=== PATIENT | female | born 1990 | race African-American/Black ===

== ENCOUNTER 2017-02-23 17:12 | Emergency (ER) | payer SELFPAY ==
[~2017-02-23] VITALS: Ht 170.2 cm; Wt 102.0 kg
[~2017-02-23 17:12] MED LIST: Z.0.NO CURRENT MEDS
[2017-02-23 17:20] VITALS: BP 134/71; PULSE 80; RESP 16; TEMP 98.6; O2SAT 100
--- NOTE | 2017-02-23 17:40 | PD ---
HPI Chief Complaint: Abdominal Pain Time Seen by Provider: 17:28 Travel History International Travel<30 days: No Contact w/Intl Traveler<30days: No Traveled to known affect area: No History of Present Illness HPI 26-year-old female complains of low abdominal pain. Patient states the pain started yesterday. Patient states that the pain cramping pain and sharp pain localized to lower abdomen. Patient denies any pain radiation. Patient denies any fever chills. Patient denies any dysuria or frequency. Patient denies any vaginal discharge or bleeding. Patient states that she is 1 para 0 AB 0. Last menstruation period about 2 months ago. Patient states that she thinks she is . 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 PFSH Past Medical History Anemia: Yes : 0 Para: 0 Miscarriage: 0 Social History Alcohol Use: Yes (OCCAS) Tobacco Use: No Substance Use: No Allergies-Medications (Allergen,Severity, Reaction): Coded Allergies: No Known Allergies (Verified Adverse Reaction, Unknown, 02/23/17) Reported Meds & Prescriptions Reported Meds & Active Scripts Active No Active Prescriptions or Reported Medications Review of Systems General / Constitutional: No: Fever Eyes: No: Visual changes HENT: No: Headaches Cardiovascular: No: Chest Pain or Discomfort Respiratory: No: Shortness of Breath Gastrointestinal: Positive: Abdominal Pain Genitourinary: No: Dysuria Musculoskeletal: No: Pain Skin: No Rash Neurologic: No: Weakness Psychiatric: No: Depression Endocrine: No: Polydipsia Hematologic/Lymphatic: No: Easy Bruising Physical Exam Narrative GENERAL: Well-nourished, well-developed patient. SKIN: Focused skin assessment warm/dry. HEAD: Normocephalic. EYES: No scleral icterus. No injection or drainage. NECK: Supple, trachea midline. No JVD or lymphadenopathy. CARDIOVASCULAR: Regular rate and rhythm without murmurs, gallops, or rubs. RESPIRATORY: Breath sounds equal bilaterally. No accessory muscle use. GASTROINTESTINAL: Abdomen soft, nondistended. Patient has mild tenderness on palpation lower abdomen. No rebound tenderness. No mass. MUSCULOSKELETAL: No cyanosis, or edema. BACK: Nontender without obvious deformity. No CVA tenderness. RECREATION CLERK exam: Patient has a small amount of thick whitish discharge in the vaginal vault. No blood in the vaginal vault. The cervix is long thick and closed. Uterus enlarged with mild tenderness on palpation. No adnexal mass or tenderness. Data Data Last Documented VS Vital Signs Date Time Temp Pulse Resp B/P (MAP) Pulse Ox O2 Delivery O2 Flow Rate FiO2 02/23/17 19:44 75 18 137/77 (97) 97 02/23/17 17:20 98.6 Orders Orders Urinalysis - C+S If Indicated (02/23/17 17:22) Ed Urine Pregnancytest Poc (02/23/17 17:22) Beta Hcg (Quant/Titer) (02/23/17 17:32) Complete Blood Count With Diff (02/23/17 17:32) Basic Metabolic Panel (Bmp) (02/23/17 17:32) Complete Rh (02/23/17 17:32) Iv Access Insert/Monitor (02/23/17 17:32) Us Pelvis (Ques Pr/Ect)W Trans (02/23/17 ) Gc And Chlamydia Pcr (02/23/17 18:18) Wet Prep Profile (02/23/17 18:18) Ed Discharge Order (02/23/17 19:47) Labs Laboratory Tests Test 02/23/17 17:25 02/23/17 17:30 02/23/17 18:10 Clue Cells (Wet Prep) NONE SEEN Vaginal Trichomonas (Wet Prep) NONE SEEN Vaginal Yeast (Wet Prep) NONE SEEN Urine Color YELLOW Urine Turbidity CLEAR Urine pH 7.0 Urine Specific [place] 1.025 Urine Protein NEG mg/dL Urine Glucose (UA) NEG mg/dL Urine Ketones NEG mg/dL Urine Occult Blood NEG Urine Nitrite NEG Urine Bilirubin NEG Urine Leukocyte Esterase NEG Urine RBC 0-2 /hpf Urine WBC 3-5 /hpf Urine Squamous Epithelial Cells 0-5 /hpf Urine Bacteria RARE /hpf Microscopic Urinalysis Comment CULT NOT INDICATED White Blood Count 8.0 TH/MM3 Red Blood Count 4.51 MIL/MM3 Hemoglobin 9.9 GM/DL Hematocrit 32.3 % Mean Corpuscular Volume 71.7 FL Mean Corpuscular Hemoglobin 21.9 PG Mean Corpuscular Hemoglobin Concent 30.5 % Red Cell Distribution Width 18.9 % Platelet Count 282 TH/MM3 Mean Platelet Volume 8.5 FL Neutrophils (%) (Auto) 52.3 % Lymphocytes (%) (Auto) 33.9 % Monocytes (%) (Auto) 12.0 % Eosinophils (%) (Auto) 1.4 % Basophils (%) (Auto) 0.4 % Neutrophils # (Auto) 4.2 TH/MM3 Lymphocytes # (Auto) 2.7 TH/MM3 Monocytes # (Auto) 1.0 TH/MM3 Eosinophils # (Auto) 0.1 TH/MM3 Basophils # (Auto) 0.0 TH/MM3 CBC Comment AUTO DIFF Differential Comment AUTO DIFF CONFIRMED Platelet Estimate NORMAL Platelet Morphology Comment NORMAL Ovalocytes 1+ Blood Urea Nitrogen 11 MG/DL Creatinine 0.59 MG/DL Random Glucose 86 MG/DL Calcium Level 8.0 MG/DL Sodium Level 138 MEQ/L Potassium Level 3.5 MEQ/L Chloride Level 105 MEQ/L Carbon Dioxide Level 26.0 MEQ/L Anion Gap 7 MEQ/L Estimat Glomerular Filtration Rate 147 ML/MIN Human Chorionic Gonadotropin, Quant 1652 MIU/ML [facility] Medical Decision Making Medical Screen Exam Complete: Yes Emergency Medical Condition: Yes Interpretation(s) 1931 PM. CBC hemoglobin 9.9 hematocrit 32.3. MCV 71.7. Beta-hCG 1652. UA is negative. Wet prep negative. Differential Diagnosis Differential diagnosis including pelvic pain during , threatened AB, incomplete AB, completed AB, ectopic . Narrative Course 18-year-old female with low abdominal pain. Patient states that she is 2 months by date. Diagnosis Primary Impression: Pelvic pain during Patient Instructions: General Instructions Additional Instructions: Take vitamins as directed. Follow-up with local OB physician. Return in 2 days for repeat hCG titer and reexamination. Return immediately increasing abdominal pain, pelvic pain, vaginal bleeding. Med/Other Pt SpecificInfo: No Meds Exist/No RX given Scripts No Active Prescriptions or Reported Meds Disposition: 01 DISCHARGE HOME Condition: Stable Jordan Connelly MD Feb 23, 2017 17:40
[2017-02-23 18:25] LABS: AUTOMATED NEUTROPHIL # 4.2 TH/MM3 (1.8-7.7); BASOPHIL % 0.4 % (0.0-2.0); EOSINOPHIL # 0.1 TH/MM3 (0-0.4); EOSINOPHIL % 1.4 % (0.0-4.0); HEMATOCRIT 32.3 % (35.0-46.0); LYMPH % 33.9 % (9.0-44.0); LYMPHOCYTE # 2.7 TH/MM3 (1.0-4.8); MEAN CELL VOLUME 71.7 FL (80.0-100.0); MEAN CORPUSCULAR HEMOGLOBIN 21.9 PG (27.0-34.0); MEAN CORPUSCULAR HGB CONC 30.5 % (32.0-36.0); NEUT % 52.3 % (16.0-70.0); PLATELET COUNT 282 TH/MM3 (150-450); RED BLOOD COUNT 4.51 MIL/MM3 (4.00-5.30); RED CELL DISTRIBUTION WIDTH 18.9 % (11.6-17.2)
[2017-02-23 18:25] LABS: BLOOD, URINE NEG (NEG); GLUCOSE,URINE NEG (NEG); KETONE, URINE NEG (NEG); NITRITE,URINE NEG (NEG)
[2017-02-23 18:30] LABS: URINE COLOR YELLOW (YELLW/STRAW)
[2017-02-23 18:31] LABS: BACTERIA, URINE RARE /hpf; COMMENT (UR) CULT NOT INDICATED; CULTURE IF INDICATED CULT NOT INDICATED; RBC, URINE 0-2 /hpf (0-3); SQUAMOUS EPITHELIAL CELL URINE 0-5 /hpf (0-5)
[2017-02-23 18:37] LABS: HEMO FLAGS AUTO DIFF
[2017-02-23 18:47] LABS: POTASSIUM 3.5 MEQ/L (3.5-5.1)
[2017-02-23 19:00] VITALS: BP 134/67; PULSE 85; RESP 16; O2SAT 97
[2017-02-23 19:00] LABS: OVALOCYTES 1+ (NORMAL); PLATELET ESTIMATE SMEAR NORMAL (NORMAL); PLATELET MORPHOLOGY NORMAL (NORMAL); SCAN/DIFF AUTO DIFF CONFIRMED
[2017-02-23 19:44] VITALS: BP 137/77
--- NOTE | 2017-02-23 19:48 | RADRPT ---
EXAM DATE/TIME: 02/23/2017 17:51 [facility] COMPARISON: No previous studies available for comparison. INDICATIONS : Pelvic pain. LAB(S): Beta-hC MEDICAL HISTORY : . Anemia. SURGICAL HISTORY : None. ENCOUNTER: Initial ACUITY: 1 day PAIN SCORE: 8/10 LOCATION: Bilateral pelvis MEASUREMENTS: UTERUS: 9.6 x 8.0 x 5.8 cm ENDOMETRIAL STRIPE: 20 mm RIGHT OVARY: 3.2 x 2.8 x 2.5 cm LEFT OVARY: 4.0 x 3.4 x 3.1 cm FREE FLUID: No CROWN RUMP LENGTH: not seen = WKS DAYS FHR: not seen BPM FINDINGS: UTERUS: The myometrium is heterogeneous. Multiple hypoechoic masses are seen consistent with intramural and s ubserosal fibroids. The largest fibroid is subserosal exophytic from the posterior body. It measures 5.5 cm. Endometrial stripe is thickened measuring 2 cm. No fluid within the endometrial canal. No dis crete gestational sac. RIGHT OVARY: Ovary contains no mass or significant cystic lesion. LEFT OVARY: A 2 cm mildly complex cyst is seen involving the left ovary. No hyperemia. MISCELLANEOUS: No free fluid. CONCLUSION: 1. No gestation is currently seen. This may relate to the early stage of gestation which is occult by ultrasound at this point. 2. Multiple uterine fibroids. 3. Mildly complex cyst involving the left ovary likely relating to a corpus luteal cyst. Callum Brown Jr., MD on February 23, 2017 at 19:43 Board Certified Radiologist. This report was verified electronically.
[2017-02-23 21:34] LABS: CHLAMYDIA PCR NOT DETECTED (NOT DETECT); NEISSERIA PCR NOT DETECTED (NOT DETECT)
== END 2017-02-23 19:55 | disposition home or self-care (01) ==
LOC: PHED 17:12
DX: O26.891 Other specified pregnancy related conditions, first trimester (principal); R10.2 Pelvic and perineal pain; Z3A.00 Weeks of gestation of pregnancy not specified
CPT/HCPCS: 76700; 76817; 80048; 81001; 84702; 84703; 85025; 86901; 87210; 87491; 87591; 99284